=== PATIENT | female | born 1940 | race Hispanic/Latino ===

== ENCOUNTER 2018-04-20 02:55 | Emergency (ER) | payer MEDICARE, MEDICAID ==
[2018-04-20 02:55] VITALS: BMI 19.7
[2018-04-20 03:13] VITALS: BP 147/80; PULSE 92; RESP 18; TEMP 98; O2SAT 98
--- NOTE | 2018-04-20 04:05 | C.PDOC ---
History Of Present Illness 77 year old female presents to the ER after workers at [email or web address] called EMS to pick her up. Patient is homeless and is requesting a place to spend the night, otherwise patient denies any complaints. Time Seen by Provider: 04/20/18 03:05 Chief Complaint (Nursing): Medical Clearance History Per: Patient History/Exam Limitations: no limitations Onset/Duration Of Symptoms: Hrs Recent travel outside of the [place]: No Past Medical History Reviewed: Historical Data, Nursing Documentation, Vital Signs Vital Signs: Last Vital Signs Temp 98 F 04/20/18 03:07 Pulse 92 H 04/20/18 03:07 Resp 18 04/20/18 03:07 BP 147/80 04/20/18 03:07 Pulse Ox 98 04/20/18 03:07 - Medical History PMH: Arthritis, Back Problems, Fractures (L leg L ankle, L foot), Gastritis, Gastrointestinal Ulcer, HTN, Hypercholesterolemia, Hypothyroidism, Migraine, Peripheral Edema (chronic edema and redness), Pneumonia, Pneumothorax, Chronic Kidney Disease Denies: Anxiety (denied), Bipolar Disorder (denied), Diabetes, Deep Vein Thrombosis, Hepatitis, HIV, Seizures, Sexually Transmitted Disease Surgical History: Appendectomy, Cholecystectomy, Tonsillectomy Denies: Pacemaker - [facility] Procedures DEBRIDEMENT OF NAIL, NAIL BED OR NAIL FOLD (06/03/13) EXCISION OF TOE NAIL, EXTERNAL APPROACH (01/17/18) HOME MANAGEMENT TREATMENT (01/17/18) INDIVID PSYCHOTHERAP NEC (06/03/13) INJECT/INFUSE NEC (12/06/14) OTHER GROUP THERAPY (06/03/13) Family History: States: Unknown Family Hx - Social History Hx Tobacco Use: No Hx Alcohol Use: No Hx Substance Use: No - Immunization History Hx Tetanus Toxoid Vaccination: Yes Hx Influenza Vaccination: Yes Hx Pneumococcal Vaccination: Yes Review Of Systems Constitutional: Negative for: Fever, Chills Cardiovascular: Negative for: Chest Pain, Palpitations Respiratory: Negative for: Cough, Shortness of Breath Gastrointestinal: Negative for: Nausea, Vomiting Genitourinary: Negative for: Dysuria, Hematuria Musculoskeletal: Negative for: Neck Pain, Back Pain Skin: Negative for: Rash Neurological: Negative for: Weakness, Numbness Physical Exam - Physical Exam Appears: Non-toxic, No Acute Distress Skin: Normal Color, Warm, Dry Head: Atraumatic, Normacephalic Eye(s): bilateral: Normal Inspection Oral Mucosa: Moist Neck: Normal, Supple Chest: Symmetrical, No Tenderness Cardiovascular: Rhythm Regular Respiratory: Normal Breath Sounds, No Rales, No Rhonchi, No Wheezing Gastrointestinal/Abdominal: Soft, No Tenderness Back: No CVA Tenderness Extremity: Normal ROM (x4) Neurological/Psych: Oriented x3, Normal Speech Gait: Steady ED Course And Treatment O2 Sat by Pulse Oximetry: 98 (Room air) Pulse Ox Interpretation: Normal Disposition - Disposition Forms: [facility] (Romansh) - Scribe Statement The provider has reviewed the documentation as recorded by the Scribe Riccardo Farah All medical record entries made by the Scribe were at my direction and personally dictated by me. I have reviewed the chart and agree that the record accurately reflects my personal performance of the history, physical exam, medical decision making, and the department course for this patient. I have also personally directed, reviewed, and agree with the discharge instructions and disposition.
[2018-04-20] MEDS ORDERED: Sodium Chloride 0.9% Inh Soln (3mL) UD INH ONE (04:14)
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
== END 2018-04-20 06:50 | disposition home or self-care (01) ==
LOC: C.ER 02:55
DX: T59.811A Toxic effect of smoke, accidental (unintentional), initial encounter (principal); J70.5 Respiratory conditions due to smoke inhalation; Y92.099 Unspecified place in other non-institutional residence as the place of occurrence of the external cause

== ENCOUNTER 2018-09-08 22:35 | Emergency (ER) | payer MEDICARE, MEDICAID | END 2018-09-09 08:51 | disposition home or self-care (01) | LOC: C.ER 22:35 ==

== ENCOUNTER 2018-09-24 23:29 | Inpatient (IN) | payer MEDICARE, MEDICAID ==
[2018-09-24 23:33] VITALS: BMI 17.2
--- NOTE | 2018-09-24 23:55 | C.PDOC ---
History Of Present Illness 78 y/o female pt with hx of arthritis, HTN, HLD, migraines, pneumonia and CAD presents to the ER c/o syncopal episode today. Pt was at [facility] picking up her medication for her sinusitis when she felt herself going down. Pt was not sure if she hit her head, but denies neck pain, head pain, chest pain and hip pain. Pt also denies fever, chills, SOB, nausea, dizziness and vomiting. Pt was recently seen at [place] for sinusitis and pneumonia. Pt currently does not use any blood thinners. Time Seen by Provider: 09/24/18 23:55 Chief Complaint (Nursing): Syncope History Per: Patient History/Exam Limitations: no limitations Onset/Duration Of Symptoms: Hrs Current Symptoms Are (Timing): Still Present Activity At Onset Of Symptoms: Standing Past Medical History Reviewed: Historical Data, Nursing Documentation, Vital Signs Vital Signs: Last Vital Signs Temp 97.7 F 09/24/18 23:36 Pulse 94 H 09/24/18 23:36 Resp 16 09/24/18 23:36 BP 131/79 09/24/18 23:36 Pulse Ox 99 09/24/18 23:36 - Medical History PMH: Arthritis, Back Problems, Fractures (L leg L ankle, L foot), Gastritis, Gastrointestinal Ulcer, HTN, Hypercholesterolemia, Hypothyroidism, Migraine, Peripheral Edema (chronic edema and redness), Pneumonia, Pneumothorax, Chronic Kidney Disease Surgical History: Appendectomy, Cholecystectomy, Tonsillectomy - [facility] Procedures DEBRIDEMENT OF NAIL, NAIL BED OR NAIL FOLD (06/03/13) EXCISION OF TOE NAIL, EXTERNAL APPROACH (01/17/18) HOME MANAGEMENT TREATMENT (01/17/18) INDIVID PSYCHOTHERAP NEC (06/03/13) INJECT/INFUSE NEC (12/06/14) OTHER GROUP THERAPY (06/03/13) Family History: States: Unknown Family Hx - Social History Hx Tobacco Use: No Hx Alcohol Use: No Hx Substance Use: No - Immunization History Hx Tetanus Toxoid Vaccination: Yes Hx Influenza Vaccination: Yes Hx Pneumococcal Vaccination: Yes Review Of Systems Constitutional: Negative for: Fever, Chills Cardiovascular: Negative for: Chest Pain Respiratory: Negative for: Shortness of Breath Gastrointestinal: Negative for: Nausea, Vomiting Musculoskeletal: Negative for: Neck Pain, Other (hip pain) Neurological: Positive for: Other (syncopal episode ). Negative for: Weakness, Numbness, Headache, Dizziness Physical Exam - Physical Exam Appears: Non-toxic, No Acute Distress Skin: Normal Color, Warm, Dry Head: Atraumatic, Normacephalic Eye(s): bilateral: Normal Inspection, PERRL, EOMI Ear(s): Bilateral: Normal Nose: Normal Oral Mucosa: Moist Neck: Trachea Midline, Supple, Other (no meningeal signs and negative kernig's and brudzinski's) Chest: Symmetrical Cardiovascular: Rhythm Regular, No Friction Rub Respiratory: No Rales, No Rhonchi, No Wheezing Gastrointestinal/Abdominal: Normal Exam, Soft, No Tenderness Back: No CVA Tenderness Extremity: Bilateral: Atraumatic, Normal Color And Temperature, Normal ROM Pulses: Left Dorsalis Pedis: Normal (2+), Right Dorsalis Pedis: Normal (2+) Neurological/Psych: Oriented x3, Normal Speech, Normal Cognition, Normal Cranial Nerves, Normal Motor, Normal Sensation ED Course And Treatment - Laboratory Results Result Diagrams: 09/25/18 01:02 09/25/18 01:02 O2 Sat by Pulse Oximetry: 99 (RA) Pulse Ox Interpretation: Normal Medical Decision Making Medical Decision Making: Differential: syncope: cardiac v.s. neurocardiogenic syncope plans: -- chem labs -- blood work -- CXR -- CT Head EK, nsr, no stemi, pvcs labs, imaging largely unremarkable ct on my read unremarkable CXR on my read unremarkable no notable sinus tenderness on my exam Paged Dr. Quinteros for admission to his service for syncope pt in [facility] [address] Quinteros [phone] quinteros pt in [facility] [address] Quinteros [phone] appreciate consult w/ Dr. Gracia: to admit to his service pt in [facility], agreeable to plan. Disposition - Disposition Disposition Time: 02:17 Condition: STABLE Forms: [facility] (Swedish) - Clinical Impression Clinical Impression: Syncope - Scribe Statement The provider has reviewed the documentation as recorded by the Scribe Nelson Do Provider Attestation: All medical record entries made by the Scribe were at my direction and personally dictated by me. I have reviewed the chart and agree that the record accurately reflects my personal performance of the history, physical exam, medical decision making, and the department course for this patient. I have also personally directed, reviewed, and agree with the discharge instructions and disposition.
[2018-09-25 01:07] LABS: BASO # 0.1 K/uL (0.0-0.2); BASO % 1.1 % (0.0-2.0); EOS # 0.5 K/uL (0.0-0.7); EOS % 6.8 % (0.0-4.0); HEMOGLOBIN 11.9 g/dL (11.0-16.0); LYMPH # 1.3 K/uL (1.0-4.3); LYMPH % 18.9 % (20.0-40.0); MEAN CELL VOLUME 88.3 fL (81.0-99.0); MEAN CORPUSCULAR HEMOGLOBIN 28.6 pg (27.0-31.0); MEAN CORPUSCULAR HGB CONC 32.5 g/dL (33.0-37.0); MEAN PLATELET VOLUME 8.9 fL (7.2-11.7); MONO # 0.9 K/uL (0.0-0.8); MONO % 12.4 % (0.0-10.0); NEUT # 4.2 K/uL (1.8-7.0); NEUT % 60.8 % (50.0-75.0); RBC 4.14 Mil/uL (3.80-5.20); RED CELL DISTRIBUTION WIDTH 14.6 % (11.5-14.5); WHITE BLOOD COUNT 6.9 K/uL (4.8-10.8)
[2018-09-25 01:24] LABS: ALB/GLOB RATIO 1.7 (1.0-2.1); ALT/SGPT 33 U/L (9-52); AST/SGOT 33 U/L (14-36); BLOOD UREA NITROGEN 26 mg/dL (7-17); GFR NON-AFRICAN AMERICAN > 60
[2018-09-25 06:07] LABS: HDL CHOLESTEROL 70 mg/dL (30-70)
[2018-09-25 06:20] LABS: LDL CHOLESTEROL 97 mg/dL (0-129)
[2018-09-25 06:21] LABS: CK-MB 1.18 ng/mL (0.0-3.38)
--- NOTE | 2018-09-25 08:14 | CT ---
Date of service: 09/25/2018 PROCEDURE: CT HEAD WITHOUT CONTRAST. HISTORY: syncope COMPARISON: Comparison is made to the previous study dated 09/09/2018 TECHNIQUE: Axial computed tomography images were obtained through the head/brain without intravenous contrast. Radiation dose: Total exam DLP = 816.4 mGy-cm. This CT exam was performed using one or more of the following dose reduction techniques: Automated exposure control, adjustment of the mA and/or kV according to patient size, and/or use of iterative reconstruction technique. FINDINGS: HEMORRHAGE: No intracranial hemorrhage. BRAIN: No mass effect or edema. There is mild volume loss noted. There are foci of hypodensity in the periventricular and subcortical white matter likely represent chronic microvascular ischemic changes. VENTRICLES: Unremarkable. No hydrocephalus. CALVARIUM: Unremarkable. PARANASAL SINUSES: Unremarkable as visualized. No significant inflammatory changes. MASTOID AIR CELLS: Unremarkable as visualized. No inflammatory changes. OTHER FINDINGS: None. IMPRESSION: No evidence of acute intracranial hemorrhage intracranial collection mass effect or midline shift. Mild volume loss and [id number] white matter changes likely represent chronic microvascular ischemic disease. Preliminary report was submitted by [facility] Radiology contains concordant findings.
[2018-09-25] MEDS ORDERED: RANITIDINE HCL 300 MG PO SCH (10:00)
[2018-09-25] MEDS ORDERED: Potassium Chloride 20 mEq ER Tab PO ONE (10:15)
--- NOTE | 2018-09-25 10:35 | RAD ---
Date of service: 09/25/2018 HISTORY: fall COMPARISON: Comparison is made with 06/01/2013 TECHNIQUE: 1 view obtained. FINDINGS: LUNGS: No significant interval changes in the lungs are noted. Again noted are chronic lung changes and reticular opacities at the lung bases. PLEURA: No significant pleural effusion identified, no pneumothorax apparent. CARDIOVASCULAR: No aortic atherosclerotic calcification present. Normal cardiac size. No pulmonary vascular congestion. OSSEOUS STRUCTURES: No significant abnormalities. VISUALIZED UPPER ABDOMEN: Normal. OTHER FINDINGS: None. IMPRESSION: No radiographic evidence of acute pulmonary disease.
[2018-09-25] MEDS: Levothyroxine 125 MCG TAB PO SCH (11:37)
[2018-09-25] MEDS: Multiple Vitamins Tab PO SCH (11:37)
[2018-09-25] MEDS: Enoxaparin 40 mg Syringe SC SCH (11:38)
--- NOTE | 2018-09-25 15:48 | CP.PCM.CON ---
History of Present Illness - History of Present Illness History of Present Illness: Neurology Consultation Note: Consult requested by Dr. Gracia. Mrs. Singh is 78-year-old woman who was recently at [place] for pneumonia, has a past medical history of arthritis, HTN, HLD, migraines, CAD, who was at [facility], and noticed that she became light-headed and felt herself passing out. There was no report of urinary/bowel incontinence, tongue biting or abnormal movements. When she woke up, she was not confused and did not have any post- ictal phase. Review of Systems - Review of Systems All systems: reviewed and no additional remarkable complaints except Past Patient History - Infectious Disease Hx of Infectious Diseases: None - Past Social History Smoking Status: Never Smoked - CARDIAC Hx Hypercholesterolemia: Yes Hx Hypertension: Yes Hx Peripheral Edema: Yes (chronic edema and redness) - PULMONARY Hx Pneumonia: Yes - NEUROLOGICAL Hx Migraine: Yes - HEENT Hx HEENT Problems: No Hx Cataracts: No - RENAL Hx Chronic Kidney Disease: Yes - ENDOCRINE/METABOLIC Hx Hypothyroidism: Yes - HEMATOLOGICAL/ONCOLOGICAL Hx Human Immunodeficiency Virus (HIV): No - INTEGUMENTARY Hx Dermatological Problems: Yes Other/Comment: 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, skin 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 - MUSCULOSKELETAL/RHEUMATOLOGICAL Hx Arthritis: Yes Hx Fractures: Yes (L leg L ankle, L foot) - GASTROINTESTINAL Hx Gastritis: Yes - GENITOURINARY/GYNECOLOGICAL Hx Sexually Transmitted Disorders: No - PSYCHIATRIC Hx Substance Use: No - SURGICAL HISTORY Hx Appendectomy: Yes Hx Cholecystectomy: Yes Hx Tonsillectomy: Yes - ANESTHESIA Hx Anesthesia: Yes Hx Anesthesia Reactions: No Hx Malignant Hyperthermia: No Meds Allergies/Adverse Reactions: Allergies Allergy/AdvReac Type Severity Reaction Status Date / Time oxycodone HCl [From Percocet] Allergy urticaria Verified 04/20/18 03:05 to "IV percocet" Sulfa (Sulfonamide Allergy SHORTNESS Verified 04/20/18 03:05 Antibiotics) OF BREATH aspirin AdvReac pt has Verified 04/20/18 03:05 ulcer ciprofloxacin AdvReac DIZZINESS Verified 04/24/18 12:33 doxycycline AdvReac DIZZINESS Verified 04/24/18 12:33 ibuprofen [From Motrin IB] AdvReac VOMITING Verified 04/23/18 20:04 naproxen AdvReac pt has Verified 04/20/18 03:05 ulcer - Medications Medications: Current Medications Acetaminophen/Butalbital/Caffeine (Fioricet) 1 tab PO Q6 PRN PRN Reason: Pain, moderate (4-7), Headache Enoxaparin Sodium (Lovenox) 40 mg SC DAILY [facility] Last Admin: 09/25/18 11:38 Dose: 40 mg Famotidine (Pepcid) 20 mg PO BID [facility] Last Admin: 09/25/18 11:38 Dose: Not Given Levothyroxine Sodium (Synthroid) 125 mcg PO DAILY [facility] Last Admin: 09/25/18 11:37 Dose: 125 mcg Loratadine (Claritin) 10 mg PO DAILY [facility] Last Admin: 09/25/18 11:37 Dose: 10 mg Multivitamins (Hexavitamin) 1 tab PO DAILY [facility] Last Admin: 09/25/18 11:37 Dose: 1 tab Physical Exam - Constitutional Appears: Well - Head Exam Head Exam: ATRAUMATIC, NORMAL INSPECTION, NORMOCEPHALIC - Eye Exam Eye Exam: EOMI, Normal appearance, PERRL Pupil Exam: NORMAL ACCOMODATION, PERRL - ENT Exam ENT Exam: Mucous Membranes Moist, Normal Exam - Neck Exam Neck exam: Positive for: Normal Inspection - Respiratory Exam Respiratory Exam: Clear to Auscultation Bilateral, NORMAL BREATHING PATTERN - Cardiovascular Exam Cardiovascular Exam: REGULAR RHYTHM - GI/Abdominal Exam GI & Abdominal Exam: Normal Bowel Sounds, Soft. absent: Tenderness - Extremities Exam Extremities exam: Positive for: normal inspection - Back Exam Back exam: NORMAL INSPECTION - Neurological Exam Neurological exam: Alert, CN II-XII Intact, Normal Gait, Oriented x3, Reflexes Normal - Psychiatric Exam Psychiatric exam: Normal Affect, Normal Mood - Skin Skin Exam: Dry, Intact, Normal Color, Warm Results - Vital Signs Recent Vital Signs: Last Vital Signs Temp 97.4 F L 09/25/18 08:43 Pulse 82 09/25/18 08:43 Resp 20 09/25/18 08:43 BP 102/66 09/25/18 08:43 Pulse Ox 100 09/25/18 08:43 - Labs Result Diagrams: 09/25/18 01:02 09/25/18 01:02 Labs: Laboratory Results - last 24 hr 09/25/18 09/25/18 09/25/18 01:02 01:02 05:51 WBC 6.9 RBC 4.14 Hgb 11.9 Hct 36.6 MCV 88.3 MCH 28.6 MCHC 32.5 L RDW 14.6 H Plt Count 279 MPV 8.9 Neut % (Auto) 60.8 Lymph % (Auto) 18.9 L [place] % (Auto) 12.4 H Eos % (Auto) 6.8 H Baso % (Auto) 1.1 Neut # (Auto) 4.2 Lymph # (Auto) 1.3 [place] # (Auto) 0.9 H Eos # (Auto) 0.5 Baso # (Auto) 0.1 Sodium 137 Potassium 3.3 L Chloride 102 Carbon Dioxide 29 Anion Gap 10 BUN 26 H Creatinine 0.6 L Est GFR ( Amer) > 60 Est GFR (Non-Af Amer) > 60 Random Glucose 128 H D Calcium 9.0 Magnesium 1.9 1.9 Total Bilirubin 0.3 AST 33 ALT 33 Alkaline Phosphatase 146 H Total Creatine Kinase < 20 L CK-MB (Mass) 1.18 Troponin I < 0.0120 0.0120 Total Protein 6.4 Albumin 4.0 Globulin 2.3 Albumin/Globulin Ratio 1.7 Triglycerides 185 H Cholesterol 213 H LDL Cholesterol Direct 97 HDL Cholesterol 70 TSH 3rd Generation 0.25 L Assessment & Plan (1) Syncope Assessment and Plan: Likely due to vaso-vagal reasons. No focal neurological deficits. CT head is normal. Does not appear to have been a seizure. No further recommendations. Thank you. Status: Acute
--- NOTE | 2018-09-25 18:29 | CP.PCM.CON ---
History of Present Illness - History of Present Illness History of Present Illness: 78 year old with hx of HTN, ? Bipolar from er records, had multiple evaluation for multipe near syncope under stress, the latest was at [place] 04/15, [place] neuro eval, no arrythmia on telemetry, echo NL LV contractility, ? they could not evaluate . now admitted with the same, no apparent seizures, had CT, seen by neuro, stable vitals, no postural hypotenssion, no arrhythmia. no complete Loss of conciseness, no trauma. will repeat echo. Clinically no significant aortic stenosis, she is very upset about the way she was treated at [facility] Review of Systems - Review of Systems Systems not reviewed;Unavailable: Acuity of Condition - Constitutional Constitutional: Anorexia, Weakness - EENT Eyes: absent: Discharge Ears: absent: Ear Discharge Nose/Mouth/Throat: absent: Epistaxis - Cardiovascular Cardiovascular: Lightheadedness. absent: Acrocyanosis, Chest Pain, Dyspnea on Exertion, Syncope - Respiratory Respiratory: absent: Dyspnea, Hemoptysis, Dyspnea on Exertion - Gastrointestinal Gastrointestinal: absent: Abdominal Pain, Diarrhea, Hematemesis, Vomiting - Genitourinary Genitourinary: absent: Change in Urinary Stream - Reproductive: Female Reproductive:Female: Menopausal Past Patient History - Infectious Disease Hx of Infectious Diseases: None - Past Social History Smoking Status: Never Smoked - CARDIAC Hx Hypercholesterolemia: Yes Hx Hypertension: Yes - PULMONARY Hx Pneumonia: Yes - NEUROLOGICAL Hx Migraine: Yes - HEENT Hx HEENT Problems: No Hx Cataracts: No - RENAL Hx Chronic Kidney Disease: Yes - ENDOCRINE/METABOLIC Hx Hypothyroidism: Yes - HEMATOLOGICAL/ONCOLOGICAL Hx Human Immunodeficiency Virus (HIV): No - INTEGUMENTARY Hx Dermatological Problems: Yes Other/Comment: 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, skin 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 - MUSCULOSKELETAL/RHEUMATOLOGICAL Hx Arthritis: Yes - GASTROINTESTINAL Hx Gastritis: Yes - GENITOURINARY/GYNECOLOGICAL Hx Sexually Transmitted Disorders: No - PSYCHIATRIC Hx Substance Use: No - SURGICAL HISTORY Hx Appendectomy: Yes Hx Cholecystectomy: Yes Hx Tonsillectomy: Yes - ANESTHESIA Hx Anesthesia: Yes Hx Anesthesia Reactions: No Hx Malignant Hyperthermia: No Meds Allergies/Adverse Reactions: Allergies Allergy/AdvReac Type Severity Reaction Status Date / Time oxycodone HCl [From Percocet] Allergy urticaria Verified 04/20/18 03:05 to "IV percocet" Sulfa (Sulfonamide Allergy SHORTNESS Verified 04/20/18 03:05 Antibiotics) OF BREATH aspirin AdvReac pt has Verified 04/20/18 03:05 ulcer ciprofloxacin AdvReac DIZZINESS Verified 04/24/18 12:33 doxycycline AdvReac DIZZINESS Verified 04/24/18 12:33 ibuprofen [From Motrin IB] AdvReac VOMITING Verified 04/23/18 20:04 naproxen AdvReac pt has Verified 04/20/18 03:05 ulcer - Medications Medications: Current Medications Acetaminophen/Butalbital/Caffeine (Fioricet) 1 tab PO Q6 PRN PRN Reason: Pain, moderate (4-7), Headache Enoxaparin Sodium (Lovenox) 40 mg SC DAILY [facility] Last Admin: 09/25/18 11:38 Dose: 40 mg Famotidine (Pepcid) 20 mg PO BID [facility] Last Admin: 09/25/18 11:38 Dose: Not Given Levothyroxine Sodium (Synthroid) 125 mcg PO DAILY [facility] Last Admin: 09/25/18 11:37 Dose: 125 mcg Loratadine (Claritin) 10 mg PO DAILY [facility] Last Admin: 09/25/18 11:37 Dose: 10 mg Multivitamins (Hexavitamin) 1 tab PO DAILY [facility] Last Admin: 09/25/18 11:37 Dose: 1 tab Physical Exam - Constitutional Appears: Non-toxic - Head Exam Head Exam: ATRAUMATIC - Eye Exam Eye Exam: EOMI - ENT Exam ENT Exam: Mucous Membranes Moist - Neck Exam Neck exam: Positive for: Normal Inspection. Negative for: Lymphadenopathy - Respiratory Exam Respiratory Exam: absent: Rales, Rhonchi - Cardiovascular Exam Cardiovascular Exam: REGULAR RHYTHM, Systolic Murmur Additional comments: Soft 1/6 to 2/6 ejection murmur - GI/Abdominal Exam GI & Abdominal Exam: Normal Bowel Sounds. absent: Organomegaly - Rectal Exam Rectal Exam: Deferred - Extremities Exam Extremities exam: Positive for: normal capillary refill. Negative for: calf tenderness - Neurological Exam Neurological exam: Alert, Oriented x3 - Psychiatric Exam Psychiatric exam: Anxious - Skin Skin Exam: Dry Results - Vital Signs Recent Vital Signs: Last Vital Signs Temp 97.5 F L 09/25/18 16:43 Pulse 94 H 09/25/18 16:43 Resp 20 09/25/18 16:43 BP 110/58 L 09/25/18 16:43 Pulse Ox 96 09/25/18 16:43 - Labs Result Diagrams: 09/26/18 08:52 09/26/18 08:52 Labs: Laboratory Results - last 24 hr 09/25/18 09/25/18 09/25/18 01:02 01:02 05:51 WBC 6.9 RBC 4.14 Hgb 11.9 Hct 36.6 MCV 88.3 MCH 28.6 MCHC 32.5 L RDW 14.6 H Plt Count 279 MPV 8.9 Neut % (Auto) 60.8 Lymph % (Auto) 18.9 L Hodgeman % (Auto) 12.4 H Eos % (Auto) 6.8 H Baso % (Auto) 1.1 Neut # (Auto) 4.2 Lymph # (Auto) 1.3 Hodgeman # (Auto) 0.9 H Eos # (Auto) 0.5 Baso # (Auto) 0.1 Sodium 137 Potassium 3.3 L Chloride 102 Carbon Dioxide 29 Anion Gap 10 BUN 26 H Creatinine 0.6 L Est GFR ( Amer) > 60 Est GFR (Non-Af Amer) > 60 Random Glucose 128 H D Calcium 9.0 Magnesium 1.9 1.9 Total Bilirubin 0.3 AST 33 ALT 33 Alkaline Phosphatase 146 H Total Creatine Kinase < 20 L CK-MB (Mass) 1.18 Troponin I < 0.0120 0.0120 Total Protein 6.4 Albumin 4.0 Globulin 2.3 Albumin/Globulin Ratio 1.7 Triglycerides 185 H Cholesterol 213 H LDL Cholesterol Direct 97 HDL Cholesterol 70 TSH 3rd Generation 0.25 L Assessment & Plan (1) Syncope Status: Acute Comment: unlikely significant, no seizures, no [place], no arrhythmia, unlikely significant aortic stenosis
[2018-09-25] MEDS: Apap-Butalbital-Caffeine 325-50-40mg Tab PO PRN (21:24)
[2018-09-26] MEDS: Apap-Butalbital-Caffeine 325-50-40mg Tab PO PRN ×3 (05:57→19:15)
[2018-09-26 09:02] LABS: BASO # 0.1 K/uL (0.0-0.2); BASO % 1.6 % (0.0-2.0); EOS # 0.3 K/uL (0.0-0.7); EOS % 6.7 % (0.0-4.0); HEMOGLOBIN 10.6 g/dL (11.0-16.0); LYMPH # 0.9 K/uL (1.0-4.3); LYMPH % 17.9 % (20.0-40.0); MEAN CELL VOLUME 88.6 fL (81.0-99.0); MEAN CORPUSCULAR HEMOGLOBIN 28.9 pg (27.0-31.0); MEAN CORPUSCULAR HGB CONC 32.6 g/dL (33.0-37.0); MONO # 0.7 K/uL (0.0-0.8); NEUT # 3.1 K/uL (1.8-7.0); NEUT % 60.8 % (50.0-75.0); RBC 3.68 Mil/uL (3.80-5.20); RED CELL DISTRIBUTION WIDTH 14.7 % (11.5-14.5); WHITE BLOOD COUNT 5.1 K/uL (4.8-10.8)
[2018-09-26 09:34] LABS: ALB/GLOB RATIO 1.4 (1.0-2.1); ALBUMIN 3.2 g/dL (3.5-5.0); ALT/SGPT 31 U/L (9-52); AST/SGOT 27 U/L (14-36); BLOOD UREA NITROGEN 16 mg/dL (7-17); CALCIUM 8.6 mg/dl (8.6-10.4); GFR NON-AFRICAN AMERICAN > 60
--- NOTE | 2018-09-26 11:26 | CP.PCM.PN ---
Subjective - Date & Time of Evaluation Date of Evaluation: 09/26/18 Time of Evaluation: 13:00 - Subjective Subjective: no CA, stable vitals, 1.3 g dropp of Hgb, f/u with echo comfortable in bed no acute distress Objective - Vital Signs/Intake and Output Vital Signs (last 24 hours): Temp Pulse Resp BP Pulse Ox 97.6 F 87 20 111/69 96 09/26/18 07:00 09/26/18 07:00 09/26/18 07:00 09/26/18 07:00 09/26/18 07:00 - Medications Medications: Current Medications Acetaminophen/Butalbital/Caffeine (Fioricet) 1 tab PO Q6 PRN PRN Reason: Pain, moderate (4-7), Headache Last Admin: 09/26/18 05:57 Dose: 1 tab Enoxaparin Sodium (Lovenox) 40 mg SC DAILY [facility] Last Admin: 09/25/18 11:38 Dose: 40 mg Famotidine (Pepcid) 20 mg PO BID [facility] Last Admin: 09/25/18 18:00 Dose: 20 mg Levothyroxine Sodium (Synthroid) 125 mcg PO DAILY [facility] Last Admin: 09/25/18 11:37 Dose: 125 mcg Loratadine (Claritin) 10 mg PO DAILY [facility] Last Admin: 09/25/18 11:37 Dose: 10 mg Multivitamins (Hexavitamin) 1 tab PO DAILY [facility] Last Admin: 09/25/18 11:37 Dose: 1 tab - Labs Labs: 09/26/18 08:52 09/26/18 08:52 - Constitutional Appears: Non-toxic - Head Exam Head Exam: ATRAUMATIC - Eye Exam Eye Exam: EOMI - ENT Exam ENT Exam: Mucous Membranes Moist - Neck Exam Neck Exam: absent: Lymphadenopathy, Thyromegaly - Respiratory Exam Respiratory Exam: absent: Rales, Rhonchi, Wheezes - Cardiovascular Exam Cardiovascular Exam: REGULAR RHYTHM, Murmur - GI/Abdominal Exam GI & Abdominal Exam: Soft, Normal Bowel Sounds. absent: Organomegaly - Rectal Exam Rectal Exam: Deferred - Extremities Exam Extremities Exam: Normal Capillary Refill. absent: Calf Tenderness - Neurological Exam Neurological Exam: Alert - Psychiatric Exam Psychiatric exam: Normal Affect - Skin Skin Exam: Dry Assessment and Plan (1) Syncope Assessment & Plan: No posterior changes no significant cardiac reason for near syncope follow-up with echo Status: Acute
[2018-09-26] MEDS: Multiple Vitamins Tab PO SCH (11:42)
[2018-09-26] MEDS: Levothyroxine 125 MCG TAB PO SCH (11:42)
[2018-09-26] MEDS: Enoxaparin 40 mg Syringe SC SCH (11:42)
[2018-09-26] MEDS ORDERED: Lidocaine 5% Patch TD ONE (21:47)
--- NOTE | 2018-09-26 23:08 | CP.PCM.HP ---
Present on Admission - Present on Admission Any Indicators Present on Admission: No Past Patient History - Infectious Disease Hx of Infectious Diseases: None - Past Social History Smoking Status: Never Smoked - CARDIAC Hx Hypercholesterolemia: Yes Hx Hypertension: Yes - PULMONARY Hx Pneumonia: Yes - NEUROLOGICAL Hx Migraine: Yes - HEENT Hx HEENT Problems: No Hx Cataracts: No - RENAL Hx Chronic Kidney Disease: Yes - ENDOCRINE/METABOLIC Hx Hypothyroidism: Yes - HEMATOLOGICAL/ONCOLOGICAL Hx Human Immunodeficiency Virus (HIV): No - INTEGUMENTARY Hx Dermatological Problems: Yes Other/Comment: 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, skin 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 - MUSCULOSKELETAL/RHEUMATOLOGICAL Hx Arthritis: Yes - GASTROINTESTINAL Hx Gastritis: Yes - GENITOURINARY/GYNECOLOGICAL Hx Sexually Transmitted Disorders: No - PSYCHIATRIC Hx Substance Use: No - SURGICAL HISTORY Hx Appendectomy: Yes Hx Cholecystectomy: Yes Hx Tonsillectomy: Yes - ANESTHESIA Hx Anesthesia: Yes Hx Anesthesia Reactions: No Hx Malignant Hyperthermia: No Meds Allergies/Adverse Reactions: Allergies Allergy/AdvReac Type Severity Reaction Status Date / Time oxycodone HCl [From Percocet] Allergy urticaria Verified 04/20/18 03:05 to "IV percocet" Sulfa (Sulfonamide Allergy SHORTNESS Verified 04/20/18 03:05 Antibiotics) OF BREATH aspirin AdvReac pt has Verified 04/20/18 03:05 ulcer ciprofloxacin AdvReac DIZZINESS Verified 04/24/18 12:33 doxycycline AdvReac DIZZINESS Verified 04/24/18 12:33 ibuprofen [From Motrin IB] AdvReac VOMITING Verified 04/23/18 20:04 naproxen AdvReac pt has Verified 04/20/18 03:05 ulcer Results - Vital Signs Recent Vital Signs: Last Vital Signs Temp 97.1 F L 09/26/18 19:35 Pulse 87 09/26/18 16:00 Resp 18 09/26/18 16:00 BP 123/72 09/26/18 16:00 Pulse Ox 97 09/26/18 16:00 - Labs Result Diagrams: 09/26/18 08:52 09/26/18 08:52 Labs: Laboratory Results - last 24 hr 09/26/18 09/26/18 08:52 08:52 WBC 5.1 RBC 3.68 L Hgb 10.6 L Hct 32.6 L MCV 88.6 MCH 28.9 MCHC 32.6 L RDW 14.7 H Plt Count 271 MPV 9.0 Neut % (Auto) 60.8 Lymph % (Auto) 17.9 L Ulster % (Auto) 13.0 H Eos % (Auto) 6.7 H Baso % (Auto) 1.6 Neut # (Auto) 3.1 Lymph # (Auto) 0.9 L Ulster # (Auto) 0.7 Eos # (Auto) 0.3 Baso # (Auto) 0.1 Sodium 138 Potassium 4.4 Chloride 104 Carbon Dioxide 28 Anion Gap 10 BUN 16 Creatinine 0.6 L Est GFR ( Amer) > 60 Est GFR (Non-Af Amer) > 60 Random Glucose 90 D Calcium 8.6 Total Bilirubin 0.2 AST 27 ALT 31 Alkaline Phosphatase 112 Total Protein 5.6 L Albumin 3.2 L Globulin 2.3 Albumin/Globulin Ratio 1.4
[2018-09-27] MEDS: Apap-Butalbital-Caffeine 325-50-40mg Tab PO PRN (02:11)
[2018-09-27] MEDS: Levothyroxine 125 MCG TAB PO SCH (05:50)
--- NOTE | 2018-09-27 06:36 | HP ---
CHIEF COMPLAINT: Syncope and dizziness. HISTORY OF PRESENT ILLNESS: This is a 78-year-old white female with history of osteoarthritis, hypertension, hyperlipidemia, chronic headaches, pneumonia. The patient was treated at [facility] for coronary artery disease. The patient was in a pharmacy and while she was taking her medicine for her sinus, she started feeling dizzy and she felt like she is about to fall. The patient is not sure about any head hit. She denies any history of neck pain. She is complaining of headache on the top of her head. She had chest pain before, but she denies any chest pain at the moment. She has joint pain and hip pain. She denies any history of cough, sore throat, runny nose. She denies any history of dyspepsia. She denies any history of nausea or vomiting. There is no history of trauma, fall, loss of consciousness. There is no history of seizure-like activity. She denies any tingling, numbness, or paraesthesia. Today, the patient was walking in her room, and she hit her right ankle and she is complaining of pain in the right ankle. At the moment, she denies any runny nose, sneezing, itchy eyes, or itchy nose. There is no history of abdominal pain, nausea, vomiting, or diarrhea. PAST MEDICAL HISTORY: Arthritis. The patient has deformity of hands. She is weird but she does not know if she has rheumatoid arthritis. Hypertension, hyperlipidemia, hypothyroidism, pneumonia. PAST SURGICAL HISTORY: Tonsillectomy, cholecystectomy, appendectomy. SOCIAL HISTORY: She is a nonsmoker, non-EtOH user. CURRENT MEDICATION: At home, she is on clonidine, Synthroid, Zantac, Pen-VK, omeprazole, Movantik, Dailyvit, Claritin, Zestril, . PHYSICAL EXAMINATION: GENERAL: An elderly female who is combative, agitated, and restless. She is at the moment not in any distress. She is complaining of pain in the right ankle. VITAL SIGNS: Blood pressure 123/72, pulse 58, respiratory rate 18, temperature 97.9. SKIN: Senile turgor. No bruises. No purpura. No petechiae. HEENT: Atraumatic and normocephalic. Positive pallor. Negative jaundice. Extraocular movements are intact. NECK: Supple. No JVD. No lymph node. No thyromegaly. CHEST WALL: Bilateral symmetrical expansion. LUNGS: Clear. No rales. No rhonchi. CARDIOVASCULAR SYSTEM: PMI not localized. S1 and S2 regular. No heave. No thrill. ABDOMEN: Soft, nontender. Bowel sounds are positive. RECTAL: Refused. PELVIS: Refused. 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 The patient has tenderness on the right lateral malleolus. CENTRAL NERVOUS SYSTEM: Awake, alert, and oriented x3. Cranial nerves II through XII are normal. No involuntary movement. Power 5/5 x4. Plantars are downgoing. ASSESSMENT: 1. Dizziness, near syncope with a new fall today in the hospital, rule out cardiac arrhythmia, rule out seizure, rule out vasovagal syncope. 2. Poorly controlled hypertension. 3. Hyperlipidemia. 4. Arthritis, rule out rheumatoid arthritis. PLAN: Admit. Detailed orders are written. X-ray of right ankle pending to rule out fracture. If it is positive, we can consult Orthopedics. In the meantime, we will observe the patient on telemetry. Drake Gracia MD
[2018-09-27 07:54] LABS: BASO # 0.1 K/uL (0.0-0.2); BASO % 1.5 % (0.0-2.0); EOS # 0.4 K/uL (0.0-0.7); EOS % 6.9 % (0.0-4.0); HEMOGLOBIN 10.5 g/dL (11.0-16.0); MEAN CELL VOLUME 88.1 fL (81.0-99.0); MEAN CORPUSCULAR HEMOGLOBIN 29.1 pg (27.0-31.0); MEAN CORPUSCULAR HGB CONC 33.1 g/dL (33.0-37.0); MEAN PLATELET VOLUME 8.8 fL (7.2-11.7); MONO # 0.9 K/uL (0.0-0.8); MONO % 14.1 % (0.0-10.0); NEUT # 3.8 K/uL (1.8-7.0); NEUT % 61.5 % (50.0-75.0); RBC 3.62 Mil/uL (3.80-5.20); RED CELL DISTRIBUTION WIDTH 14.5 % (11.5-14.5); WHITE BLOOD COUNT 6.2 K/uL (4.8-10.8)
[2018-09-27 08:09] LABS: ALB/GLOB RATIO 1.4 (1.0-2.1); ALBUMIN 3.2 g/dL (3.5-5.0); ALT/SGPT 28 U/L (9-52); AST/SGOT 25 U/L (14-36); BLOOD UREA NITROGEN 16 mg/dL (7-17); CALCIUM 8.8 mg/dl (8.6-10.4); GFR NON-AFRICAN AMERICAN > 60; LIPASE 48 U/L (23-300)
--- NOTE | 2018-09-27 09:34 | RAD ---
Bilateral ankles four views HISTORY: Ankle pain. COMPARISON: None available. FINDINGS: Right ankle: Diffuse osteopenia. Narrowing of the tibiotalar joint space. No evidence of acute displaced fracture or dislocation. Vascular calcifications. Ankle mortise maintained. Talar dome intact. Degenerative changes noted at the dorsal aspect of the midfoot with osteophytosis most prominent at the talonavicular joint space. Left ankle: No evidence of acute displaced fracture or dislocation. Diffuse osteopenia. Ankle mortise maintained. Talar dome intact. Vascular calcifications. Degenerative changes in the midfoot dorsally with osteophytosis most prominent at the talonavicular joint space. Impression: Degenerative changes. If pain persists, consider correlation with MRI.
[2018-09-27] MEDS: Lidocaine 5% Patch TD SCH (11:54)
[2018-09-27] MEDS: Multiple Vitamins Tab PO SCH (11:54)
[2018-09-27] MEDS: Enoxaparin 40 mg Syringe SC SCH (11:55)
--- NOTE | 2018-09-27 12:11 | CP.PCM.PN ---
Subjective - Date & Time of Evaluation Date of Evaluation: 09/27/18 Time of Evaluation: 12:00 - Subjective Subjective: No acute distress, hemodynamically stable, no further near syncope. Anxious with prior issues at [facility], echocardiogram with normal left ventricular contractility no aortic stenosis. No cardiac etiology for a near syncope is identified stable from the cardiac viewpoint Objective - Vital Signs/Intake and Output Vital Signs (last 24 hours): Temp Pulse Resp BP Pulse Ox 98 F 68 20 93/60 L 96 09/27/18 01:00 09/27/18 08:22 09/27/18 00:00 09/27/18 00:00 09/27/18 08:24 Intake and Output: 09/27/18 09/27/18 06:59 18:59 Intake Total 300 Balance 300 - Medications Medications: Current Medications Acetaminophen/Butalbital/Caffeine (Fioricet) 1 tab PO Q6 PRN PRN Reason: Pain, moderate (4-7), Headache Last Admin: 09/27/18 02:11 Dose: 1 tab Enoxaparin Sodium (Lovenox) 40 mg SC DAILY [facility] Last Admin: 09/27/18 11:55 Dose: 40 mg Famotidine (Pepcid) 20 mg PO BID [facility] Last Admin: 09/27/18 11:55 Dose: 20 mg Levothyroxine Sodium (Synthroid) 125 mcg PO 0630 [facility] Last Admin: 09/27/18 05:50 Dose: 125 mcg Lidocaine (Lidoderm) 1 ea TD DAILY [facility] Last Admin: 09/27/18 11:54 Dose: 1 ea Loratadine (Claritin) 10 mg PO DAILY [facility] Last Admin: 09/27/18 11:53 Dose: 10 mg Multivitamins (Hexavitamin) 1 tab PO DAILY [facility] Last Admin: 09/27/18 11:54 Dose: 1 tab - Labs Labs: 09/27/18 07:40 09/27/18 07:40 - Constitutional Appears: Non-toxic - Head Exam Head Exam: ATRAUMATIC - Eye Exam Eye Exam: EOMI - ENT Exam ENT Exam: Mucous Membranes Moist - Neck Exam Neck Exam: absent: Lymphadenopathy, Tenderness - Respiratory Exam Respiratory Exam: Clear to Ausculation Bilateral. absent: Chest Wall Tenderness, Rales - Cardiovascular Exam Cardiovascular Exam: REGULAR RHYTHM, Murmur - GI/Abdominal Exam GI & Abdominal Exam: Normal Bowel Sounds. absent: Organomegaly - Rectal Exam Rectal Exam: Deferred - Extremities Exam Extremities Exam: Normal Capillary Refill. absent: Calf Tenderness - Neurological Exam Neurological Exam: Alert, Oriented x3 - Psychiatric Exam Psychiatric exam: Normal Affect - Skin Skin Exam: Dry Assessment and Plan (1) Syncope Status: Acute
[2018-09-27] MEDS ORDERED: Lidocaine 5% Patch TD ONE (17:15)
--- NOTE | 2018-09-27 21:59 | CP.PCM.PN ---
Subjective - Date & Time of Evaluation Date of Evaluation: 09/27/18 Time of Evaluation: 07:40 - Subjective Subjective: dictated Objective - Vital Signs/Intake and Output Vital Signs (last 24 hours): Temp Pulse Resp BP Pulse Ox 97.7 F 104 H 20 105/62 96 09/27/18 15:00 09/27/18 16:22 09/27/18 15:00 09/27/18 15:00 09/27/18 15:00 Intake and Output: 09/27/18 09/28/18 18:59 06:59 Intake Total 800 Balance 800 - Medications Medications: Current Medications Acetaminophen/Butalbital/Caffeine (Fioricet) 1 tab PO Q6 PRN PRN Reason: Pain, moderate (4-7), Headache Last Admin: 09/27/18 02:11 Dose: 1 tab Enoxaparin Sodium (Lovenox) 40 mg SC DAILY [facility] Last Admin: 09/27/18 11:55 Dose: 40 mg Famotidine (Pepcid) 20 mg PO BID [facility] Last Admin: 09/27/18 17:26 Dose: 20 mg Levothyroxine Sodium (Synthroid) 125 mcg PO 0630 [facility] Last Admin: 09/27/18 05:50 Dose: 125 mcg Lidocaine (Lidoderm) 1 ea TD DAILY [facility] Last Admin: 09/27/18 11:54 Dose: 1 ea Loratadine (Claritin) 10 mg PO DAILY [facility] Last Admin: 09/27/18 11:53 Dose: 10 mg Multivitamins (Hexavitamin) 1 tab PO DAILY [facility] Last Admin: 09/27/18 11:54 Dose: 1 tab - Labs Labs: 09/27/18 07:40 09/27/18 07:40
--- NOTE | 2018-09-28 03:49 | PN ---
DATE: 09/27/2018 SUBJECTIVE: The patient is feeling better. She is still on and off dizzy. No chest pain. Seen by Cardiology. PHYSICAL EXAMINATION: VITAL SIGNS: Blood pressure 105/62, pulse 104, respiratory rate 20, temperature 97.7. LUNGS: Clear. No rales. No rhonchi. CARDIOVASCULAR SYSTEM: S1 and S2, regular. ABDOMEN: Soft, nontender. Bowel sounds are positive. ASSESSMENT: 1. Dizziness, near syncope. 2. Poorly controlled hypertension with low blood pressure and tachycardia. 3. Osteoarthritis with history of injury to right ankle. No fracture on the x-ray. PLAN: Physical therapy. Rehab. Nutrition. Monitor the patient. Drake Gracia MD
[2018-09-28] MEDS: Apap-Butalbital-Caffeine 325-50-40mg Tab PO PRN ×2 (04:06→16:12)
[2018-09-28] MEDS: Levothyroxine 125 MCG TAB PO SCH (05:34)
[2018-09-28 08:19] LABS: BASO # 0.1 K/uL (0.0-0.2); EOS # 0.4 K/uL (0.0-0.7); EOS % 5.2 % (0.0-4.0); LYMPH % 12.2 % (20.0-40.0); MEAN CELL VOLUME 88.4 fL (81.0-99.0); MEAN CORPUSCULAR HEMOGLOBIN 29.3 pg (27.0-31.0); MEAN CORPUSCULAR HGB CONC 33.2 g/dL (33.0-37.0); MEAN PLATELET VOLUME 8.8 fL (7.2-11.7); MONO # 0.9 K/uL (0.0-0.8); MONO % 10.9 % (0.0-10.0); NEUT % 70.7 % (50.0-75.0); NRBC % 0.1 % (0.0-2.0); RBC 4.11 Mil/uL (3.80-5.20); RED CELL DISTRIBUTION WIDTH 14.4 % (11.5-14.5); WHITE BLOOD COUNT 8.5 K/uL (4.8-10.8)
[2018-09-28 08:27] LABS: ALB/GLOB RATIO 1.7 (1.0-2.1); ALBUMIN 3.9 g/dL (3.5-5.0); ALT/SGPT 25 U/L (9-52); AST/SGOT 30 U/L (14-36); BLOOD UREA NITROGEN 18 mg/dL (7-17); CALCIUM 9.3 mg/dl (8.6-10.4); GFR NON-AFRICAN AMERICAN > 60
[2018-09-28] MEDS: Multiple Vitamins Tab PO SCH (10:57)
[2018-09-28] MEDS: Lidocaine 5% Patch TD SCH (10:57)
[2018-09-28] MEDS: Enoxaparin 40 mg Syringe SC SCH (10:57)
--- NOTE | 2018-09-28 11:05 | VASCLAB ---
Date of service: 09/27/2018 PROCEDURE: Carotid Duplex Exam. HISTORY: SYNCOPE COMPARISON: None available. TECHNIQUE: Grayscale and duplex Doppler evaluation of the cervical carotid and vertebral arteries were performed. The common carotid, carotid bifurcations and cervical Internal Carotid Artery (ICA) and proximal External Carotid Artery (ECA) were evaluated. The vertebral arteries were evaluated for gross patency and flow direction. Report prepared by VIVIANA Leonard FINDINGS: RIGHT CAROTID ARTERIES: 1. Common Carotid Artery: No significant focal plaque formation of the right common carotid artery. Maximum Peak Systolic velocity: 78 cm/sec: End-diastolic velocity 16 cm/sec. 2. Carotid Bifurcation: Heterogeneous plaque formation. Maximum Peak Systolic velocity: 38 cm/sec: End-diastolic velocity 8 cm/sec. 3. Internal Carotid Artery: Plaque description: 3.1. Proximal Segment: Peak systolic velocity 63 cm/sec: End-diastolic velocity 20 cm/sec - % stenosis 0-15% 3.2. Middle Segment: Peak systolic velocity 66 cm/sec: End-diastolic velocity 25 cm/sec - % stenosis 0-15% 3.3. Distal Segment: Peak systolic velocity 42 cm/sec: End-diastolic velocity 17 cm/sec - % stenosis 0-15% 4. External Carotid Artery: No significant focal plaque formation. Peak systolic velocity 43 cm/sec 5. ICA/CCA Ratio: 1.0 LEFT CAROTID ARTERIES: 1. Common Carotid Artery: No significant focal plaque formation of the left common carotid artery. Maximum Peak Systolic velocity: 59 cm/sec: End-diastolic velocity 14 cm/sec. 2. Carotid Bifurcation: Homogeneous plaque formation. Maximum Peak Systolic velocity: 41 cm/sec: End-diastolic velocity 12 cm/sec. 3. Internal Carotid Artery: Plaque description: Homogeneous 3.1. Proximal Segment: Peak systolic velocity 54 cm/sec: End-diastolic velocity 23 cm/sec - % stenosis 0-15% 3.2. Middle Segment: Peak systolic velocity 46 cm/sec: End-diastolic velocity 17 cm/sec - % stenosis 0-15% 3.3. Distal Segment: Peak systolic velocity 41 cm/sec: End-diastolic velocity 18 cm/sec - % stenosis 0-15% 4. External Carotid Artery: No significant focal plaque formation. Peak systolic velocity 56 cm/sec 5. ICA/CCA Ratio: 0.9 VERTEBRAL ARTERIES: 1. Right Vertebral Artery: The right vertebral artery flow direction is antegrade. 2. Left Vertebral Artery: The left vertebral artery flow direction is antegrade. OTHER FINDINGS: None. IMPRESSION: RIGHT: Duplex scan does not suggest hemodynamically significant stenosis of the right extracranial carotid arteries. LEFT: Duplex scan does not suggest hemodynamically significant stenosis of the left extracranial carotid arteries.
--- NOTE | 2018-09-28 14:15 | CP.PCM.PN ---
Subjective - Date & Time of Evaluation Date of Evaluation: 09/29/18 Time of Evaluation: 14:15 - Subjective Subjective: PATIENT Objective - Vital Signs/Intake and Output Vital Signs (last 24 hours): Temp Pulse Resp BP Pulse Ox 97.4 F L 80 20 105/63 96 09/28/18 08:27 09/28/18 08:27 09/28/18 08:27 09/28/18 08:27 09/28/18 08:27 - Medications Medications: Current Medications Acetaminophen/Butalbital/Caffeine (Fioricet) 1 tab PO Q6 PRN PRN Reason: Pain, moderate (4-7), Headache Last Admin: 09/28/18 04:06 Dose: 1 tab Enoxaparin Sodium (Lovenox) 40 mg SC DAILY [facility] Last Admin: 09/28/18 10:57 Dose: 40 mg Famotidine (Pepcid) 20 mg PO BID [facility] Last Admin: 09/28/18 10:57 Dose: 20 mg Levothyroxine Sodium (Synthroid) 125 mcg PO 0630 [facility] Last Admin: 09/28/18 05:34 Dose: 125 mcg Lidocaine (Lidoderm) 1 ea TD DAILY [facility] Last Admin: 09/28/18 10:57 Dose: 1 ea Loratadine (Claritin) 10 mg PO DAILY [facility] Last Admin: 09/28/18 10:57 Dose: 10 mg Multivitamins (Hexavitamin) 1 tab PO DAILY [facility] Last Admin: 09/28/18 10:57 Dose: 1 tab - Labs Labs: 09/28/18 07:50 09/28/18 07:50 Assessment and Plan - Assessment and Plan (Free Text) Assessment: FOLLOW UP WITH PMD IN HIS OFFICE -----CALL FOR APPOINTNEMT ADDRESS YOUR BP MEDS CONTINUATION WHEN FOLLOW UP WITH PMD CONTINUE HOME MEDICATION NEW PRESCRIPTION GIVEN CIPRO 500 MG PO BID FOR 7 DAYS THEN REPEAT URINE CULT PER DR ALYSHA GIMENEZ ONE TAB PO BID FOR 7 DAYS STOP TAKING BLOOD PRESSURE MEDICATION ACTIVITY TOLERATED CALL DR ENCARNACION OR GO TO THE EMERGENCY ROOM IF SYMPTOM RETURN OR WORSENING
--- NOTE | 2018-09-28 21:20 | CP.PCM.PN ---
Subjective - Date & Time of Evaluation Date of Evaluation: 09/28/18 Time of Evaluation: 07:20 - Subjective Subjective: dictated Objective - Vital Signs/Intake and Output Vital Signs (last 24 hours): Temp Pulse Resp BP Pulse Ox 98.2 F 95 H 20 116/73 97 09/28/18 15:00 09/28/18 15:00 09/28/18 15:00 09/28/18 15:00 09/28/18 15:00 Intake and Output: 09/28/18 09/29/18 18:59 06:59 Intake Total 800 Balance 800 - Medications Medications: Current Medications Acetaminophen/Butalbital/Caffeine (Fioricet) 1 tab PO Q6 PRN PRN Reason: Pain, moderate (4-7), Headache Last Admin: 09/28/18 16:12 Dose: 1 tab Enoxaparin Sodium (Lovenox) 40 mg SC DAILY [facility] Last Admin: 09/28/18 10:57 Dose: 40 mg Famotidine (Pepcid) 20 mg PO BID [facility] Last Admin: 09/28/18 18:02 Dose: Not Given Levothyroxine Sodium (Synthroid) 125 mcg PO 0630 [facility] Last Admin: 09/28/18 05:34 Dose: 125 mcg Lidocaine (Lidoderm) 1 ea TD DAILY [facility] Last Admin: 09/28/18 10:57 Dose: 1 ea Loratadine (Claritin) 10 mg PO DAILY [facility] Last Admin: 09/28/18 10:57 Dose: 10 mg Multivitamins (Hexavitamin) 1 tab PO DAILY [facility] Last Admin: 09/28/18 10:57 Dose: 1 tab - Labs Labs: 09/28/18 07:50 09/28/18 07:50
--- NOTE | 2018-09-28 22:59 | CARD ---
APPROVED REPORT Date of service: 09/27/2018 EXAM: Two-dimensional and M-mode echocardiogram with Doppler and color Doppler. Other Information Quality : GoodRhythm : INDICATION Syncope CAD RISK FACTORS Hypertension Hyperlipidemia 2D DIMENSIONS IVSd0.8 (0.7-1.1cm)LVDd4.1 (3.9-5.9cm) LVOT Diameter2.2 (1.8-2.4cm)PWd0.9 (0.7-1.1cm) LA [id number] (18-58mL)LVDs2.8 (2.5-4.0cm) FS (%) 33.0 %LVEF (%)62.0 (>50%) LVEF (Ford's)54.94 % M-Mode DIMENSIONS Left Atrium (MM)4.53 (2.5-4.0cm)IVSd0.76 (0.7-1.1cm) Aortic Root2.99 (2.2-3.7cm)LVDd5.21 (4.0-5.6cm) Aortic Cusp Exc.1.31 (1.5-2.0cm)PWd0.88 (0.7-1.1cm) FS (%) 32 %LVDs3.53 (2.0-3.8cm) LVEF (%)60 (>50%) Mitral Valve MV E Gwkmmzfm13.7cm/sMV A Jyhagfqr14.3cm/sE/A ratio0.6 TDI Lateral E' Peak V9.00cm/sMedial E' Peak V8.68cm/sE/Lateral E'6.3 E/Medial E'6.5 Tricuspid Valve TR Peak Vopyafci809mx/sTR Peak [id number] <Conclusion> Left ventricle: thickness: normal; size: normal; overall ejection fraction: 65%: diastolic filling pressures: normal Mitral valve: annulus: calcified: leaflets: mild calcific thickening: excursion: normal; no significant trans-mitral gradient: no significant incompetence: left atrium: normal Aortic valve: leaflets: calcific thickeningl: excursion: normal; 16 mmHg peak trans-aortic gradient: No significant incompetence: aortic root: normal Right sided Structures: Pulmonary valve: normal; no significant incompetence; Tricuspid valve: normal; no significant incompetence: Intra-cardiac hemodynamics: pulmonary systolic pressures: normal; central venous pressures: normal No pericardial effusion
--- NOTE | 2018-09-29 01:22 | PN ---
DATE: 09/28/2018 SUBJECTIVE: The patient is feeling better. She is afebrile. Decreased dizziness. She denies any nausea or vomiting. She states she does not have a place to stay. No fever. No chills. No cough. PHYSICAL EXAMINATION: VITAL SIGNS: Blood pressure 116/73, pulse 95, respiratory rate 20, temperature 98.2. LUNGS: Clear. CARDIOVASCULAR SYSTEM: S1 and S2, regular. ABDOMEN: Soft, nontender. Bowel sounds are positive. ASSESSMENT: 1. Dizziness, near syncope. 2. Osteoarthritis. PLAN: The patient is for discharge. We are waiting for a spot in a jail. Drake Gracia MD
[2018-09-29] MEDS: Apap-Butalbital-Caffeine 325-50-40mg Tab PO PRN ×2 (03:27→15:43)
[2018-09-29] MEDS: Levothyroxine 125 MCG TAB PO SCH (06:11)
[2018-09-29] MEDS: Multiple Vitamins Tab PO SCH (09:47)
[2018-09-29] MEDS: Enoxaparin 40 mg Syringe SC SCH (09:48)
[2018-09-29] MEDS: Lidocaine 5% Patch TD SCH (09:48)
[2018-09-29] MEDS: Meropenem 500 MG in Sodium Chloride 0.9% 100 ML IVPB SCH ×2 (12:00→19:00)
--- NOTE | 2018-09-29 22:28 | CP.PCM.PN ---
Subjective - Date & Time of Evaluation Date of Evaluation: 09/29/18 Time of Evaluation: 07:00 - Subjective Subjective: dictated Objective - Vital Signs/Intake and Output Vital Signs (last 24 hours): Temp Pulse Resp BP Pulse Ox 98.6 F 86 20 95/54 L 98 09/29/18 15:00 09/29/18 15:00 09/29/18 15:00 09/29/18 15:00 09/29/18 15:00 Intake and Output: 09/29/18 09/30/18 18:59 06:59 Intake Total 900 550 Balance 900 550 - Medications Medications: Current Medications Acetaminophen/Butalbital/Caffeine (Fioricet) 1 tab PO Q6 PRN PRN Reason: Pain, moderate (4-7), Headache Last Admin: 09/29/18 15:43 Dose: 1 tab Enoxaparin Sodium (Lovenox) 40 mg SC DAILY [facility] Last Admin: 09/29/18 09:48 Dose: 40 mg Famotidine (Pepcid) 20 mg PO BID [facility] Last Admin: 09/29/18 19:00 Dose: 20 mg Meropenem 500 mg/ Sodium (Chloride) 100 mls @ 100 mls/hr IVPB Q8H [facility]; Protocol Last Admin: 09/29/18 19:00 Dose: 100 mls/hr Levothyroxine Sodium (Synthroid) 125 mcg PO 0630 [facility] Last Admin: 09/29/18 06:11 Dose: 125 mcg Lidocaine (Lidoderm) 1 ea TD DAILY [facility] Last Admin: 09/29/18 09:48 Dose: 1 ea Loratadine (Claritin) 10 mg PO DAILY [facility] Last Admin: 09/29/18 09:47 Dose: 10 mg Multivitamins (Hexavitamin) 1 tab PO DAILY [facility] Last Admin: 09/29/18 09:47 Dose: 1 tab - Labs Labs: 09/28/18 07:50 09/28/18 07:50
[2018-09-30] MEDS: Meropenem 500 MG in Sodium Chloride 0.9% 100 ML IVPB SCH ×2 (03:17→19:31)
[2018-09-30] MEDS: Apap-Butalbital-Caffeine 325-50-40mg Tab PO PRN ×2 (03:17→12:19)
[2018-09-30] MEDS: Levothyroxine 125 MCG TAB PO SCH (05:50)
--- NOTE | 2018-09-30 07:34 | CARD ---
APPROVED REPORT Date of service: 09/25/2018 EKG Measurement Heart [id number] <Conclusion> Sinus rhythm with occasional premature ventricular complexes Nonspecific T wave abnormality Abnormal ECG
--- NOTE | 2018-09-30 09:43 | PN ---
DATE: 09/29/2018 SUBJECTIVE: The patient is feeling better. She had multidrug resistant urinary tract infection, has Klebsiella pneumoniae and is here for subacute rehab. No fever. No chills. No nausea or vomiting. She needs 1 week of antibiotic and subacute rehab. PHYSICAL EXAMINATION: VITAL SIGNS: Blood pressure 99/64, pulse 80, respiratory rate 18, temperature 97.6. LUNGS: Clear. No rales, no rhonchi. CARDIOVASCULAR SYSTEM: S1 and S2, regular. ABDOMEN: Soft, nontender. Bowel sounds are positive. ASSESSMENT: 1. Multi-drug legislative assistant urinary tract infection due to extended-spectrum beta-lactamases positive germs. 2. Chronic dizziness. 3. Osteoarthritis. PLAN: The patient is for subacute rehab. Drake Gracia MD
[2018-09-30] MEDS: Enoxaparin 40 mg Syringe SC SCH (10:03)
[2018-09-30] MEDS: Lidocaine 5% Patch TD SCH (10:03)
[2018-09-30] MEDS: Multiple Vitamins Tab PO SCH (10:03)
[2018-09-30 16:20] VITALS: RESP 20
--- NOTE | 2018-09-30 21:39 | CP.PCM.PN ---
Subjective - Date & Time of Evaluation Date of Evaluation: 09/30/18 Time of Evaluation: 19:20 - Subjective Subjective: dictated Objective - Vital Signs/Intake and Output Vital Signs (last 24 hours): Temp Pulse Resp BP Pulse Ox 97.8 F 107 H 20 113/54 L 96 09/30/18 15:00 09/30/18 15:00 09/30/18 15:00 09/30/18 15:00 09/30/18 15:00 - Medications Medications: Current Medications Acetaminophen/Butalbital/Caffeine (Fioricet) 1 tab PO Q6 PRN PRN Reason: Pain, moderate (4-7), Headache Last Admin: 09/30/18 12:19 Dose: 1 tab Enoxaparin Sodium (Lovenox) 40 mg SC DAILY [facility] Last Admin: 09/30/18 10:03 Dose: 40 mg Famotidine (Pepcid) 20 mg PO BID [facility] Last Admin: 09/30/18 18:06 Dose: 20 mg Meropenem 500 mg/ Sodium (Chloride) 100 mls @ 100 mls/hr IVPB Q8H [facility]; Protocol Last Admin: 09/30/18 19:31 Dose: 100 mls/hr Levothyroxine Sodium (Synthroid) 125 mcg PO 0630 [facility] Last Admin: 09/30/18 05:50 Dose: 125 mcg Lidocaine (Lidoderm) 1 ea TD DAILY [facility] Last Admin: 09/30/18 10:03 Dose: 1 ea Loratadine (Claritin) 10 mg PO DAILY [facility] Last Admin: 09/30/18 10:03 Dose: 10 mg Multivitamins (Hexavitamin) 1 tab PO DAILY [facility] Last Admin: 09/30/18 10:03 Dose: 1 tab - Labs Labs: 09/28/18 07:50 09/28/18 07:50
--- NOTE | 2018-09-30 23:45 | PN ---
DATE: 09/30/2018 SUBJECTIVE: Maria Elena Singh is refusing to go to subacute rehab. She is anxious. She is agitated. She is restless. No nausea, vomiting. She claims she is dizzy, but she is not in distress. No fever. No chills. PHYSICAL EXAMINATION: VITAL SIGNS: Blood pressure 113/54, pulse , respiratory rate 20, temperature 97.8. LUNGS: Clear. No rales. No rhonchi. CARDIOVASCULAR SYSTEM: S1 and S2, regular. ABDOMEN: Soft, nontender. Bowel sounds are positive. ASSESSMENT: 1. 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 Continue intravenous Merrem. 2. Dizziness. 3. Osteoarthritis. PLAN: Due to the patient's bizarre behavior, we will get Psych consult. Monitor the patient and we will . Drake Gracia MD
[2018-10-01] MEDS: Apap-Butalbital-Caffeine 325-50-40mg Tab PO PRN (01:35)
[2018-10-01] MEDS: Meropenem 500 MG in Sodium Chloride 0.9% 100 ML IVPB SCH (02:53)
[2018-10-01] MEDS: Levothyroxine 125 MCG TAB PO SCH ×2 (05:09→05:51)
[2018-10-01 07:53] VITALS: BP 116/75; PULSE 87; TEMP 97.4; O2SAT 94
[2018-10-01] MEDS: Lidocaine 5% Patch TD SCH (09:41)
[2018-10-01] MEDS: Enoxaparin 40 mg Syringe SC SCH (09:41)
[2018-10-01] MEDS: Multiple Vitamins Tab PO SCH (09:41)
--- NOTE | 2018-10-01 09:44 | PCM.PSYCH ---
Initial Psychiatric Evaluation - Initial Psychiatric Evaluation Type of Admission: Voluntary Legal Status: Capacity History of Present Illness and Precipitating Events: 8 y/o female pt with hx of arthritis, HTN, HLD, migraines, pneumonia and CAD presents to the ER c/o syncopal episode today. Current Medications: Active Medications Generic Name Dose Route Start Last Admin Trade Name Freq PRN Reason Stop Dose Admin Acetaminophen/Butalbital/Caffeine 1 tab 09/25/18 04:59 10/01/18 01:35 Fioricet PO 1 tab Q6 PRN Administration Pain, moderate (4-7), Headache Enoxaparin Sodium 40 mg 09/25/18 10:15 10/01/18 09:41 Lovenox SC 40 mg DAILY [facility] Administration Famotidine 20 mg 09/25/18 10:15 10/01/18 09:42 Pepcid PO 20 mg BID [facility] Administration Meropenem 500 mg/ Sodium 100 mls @ 100 mls/hr 09/29/18 11:30 10/01/18 02:53 Chloride IVPB 100 mls/hr Q8H [facility] Administration Protocol Levothyroxine Sodium 125 mcg 09/27/18 06:30 10/01/18 05:51 Synthroid PO Not Given 0630 [facility] Lidocaine 1 ea 09/27/18 10:00 10/01/18 09:41 Lidoderm TD 1 ea DAILY [facility] Administration Loratadine 10 mg 09/25/18 10:00 10/01/18 09:41 Claritin PO 10 mg DAILY [facility] Administration Multivitamins 1 tab 09/25/18 10:00 10/01/18 09:41 Hexavitamin PO 1 tab DAILY [facility] Administration Past Psychiatric History - Past Psychiatric History Pertinent Medical Hx (Current Medical&Sleep Prob, Allergies): Allergies Allergy/AdvReac Type Severity Reaction Status Date / Time oxycodone HCl [From Percocet] Allergy urticaria Verified 04/20/18 03:05 to "IV percocet" Sulfa (Sulfonamide Allergy SHORTNESS Verified 04/20/18 03:05 Antibiotics) OF BREATH aspirin AdvReac pt has Verified 04/20/18 03:05 ulcer ciprofloxacin AdvReac DIZZINESS Verified 04/24/18 12:33 doxycycline AdvReac DIZZINESS Verified 04/24/18 12:33 ibuprofen [From Motrin IB] AdvReac VOMITING Verified 04/23/18 20:04 naproxen AdvReac pt has Verified 04/20/18 03:05 ulcer Acetaminophen/Butalbital/Caf [Fioricet] 1 tab PO Q6 PRN #30 tab 01/23/18 Synthroid 125 mcg PO DAILY 04/20/18 Ranitidine HCl [Zantac 75] 300 mg PO DAILY 04/23/18 Multivitamin [Daily Ole] 1 tab PO DAILY 04/24/18 Naloxegol Oxalate [Movantik] 25 mg PO DAILY 04/24/18 Omeprazole 40 mg PO DAILY 04/24/18 Acetaminophen/Butalbital/Caf [Fioricet] 1 tab PO Q6 PRN tab 04/28/18 Loratadine [Claritin] 10 mg PO DAILY #30 tab 04/28/18 Meropenem [Merrem IV] 500 mg IVPB Q8H 7 Days vial 09/29/18
--- NOTE | 2018-10-01 22:19 | CP.PCM.DIS ---
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[employer] Referral Routine Comment: Physician Instructions: Reason For Exam: hx: pneumonia 09/30/18 15:47 Psychiatry Consult Routine Comment: Consulting Provider: Abby Juárez Consulting Physician: Abby Juárez Reason for Consult: may need involuntary admission/multiple psy issues Time Spent in preparation of Discharge (in minutes): 30 Hospital Course - Lab Results Lab Results: Micro Results 09/27/18 16:47 Urine Random Urine Culture - Final Klebsiella Pneumoniae Ssp Pneu Most Recent Lab Values WBC 8.5 K/uL (4.8-10.8) 09/28/18 07:50 RBC 4.11 Mil/uL (3.80-5.20) 09/28/18 07:50 Hgb 12.0 g/dL (11.0-16.0) 09/28/18 07:50 Hct 36.3 % (34.0-47.0) 09/28/18 07:50 MCV 88.4 fL (81.0-99.0) 09/28/18 07:50 MCH 29.3 pg (27.0-31.0) 09/28/18 07:50 MCHC 33.2 g/dL (33.0-37.0) 09/28/18 07:50 RDW 14.4 % (11.5-14.5) 09/28/18 07:50 Plt Count 308 K/uL (130-400) 09/28/18 07:50 MPV 8.8 fL (7.2-11.7) 09/28/18 07:50 Neut % (Auto) 70.7 % (50.0-75.0) 09/28/18 07:50 Lymph % (Auto) 12.2 % (20.0-40.0) L 09/28/18 07:50 [place] % (Auto) 10.9 % (0.0-10.0) H 09/28/18 07:50 Eos % (Auto) 5.2 % (0.0-4.0) H 09/28/18 07:50 Baso % (Auto) 1.0 % (0.0-2.0) 09/28/18 07:50 Neut # (Auto) 6.0 K/uL (1.8-7.0) 09/28/18 07:50 Lymph # (Auto) 1.0 K/uL (1.0-4.3) 09/28/18 07:50 [place] # (Auto) 0.9 K/uL (0.0-0.8) H 09/28/18 07:50 Eos # (Auto) 0.4 K/uL (0.0-0.7) 09/28/18 07:50 Baso # (Auto) 0.1 K/uL (0.0-0.2) 09/28/18 07:50 Sodium 135 mmol/L (132-148) 09/28/18 07:50 Potassium 4.3 mmol/L (3.6-5.2) 09/28/18 07:50 Chloride 98 mmol/L (98-107) 09/28/18 07:50 Carbon Dioxide 33 mmol/L (22-30) H 09/28/18 07:50 Anion Gap 8 (10-20) L 09/28/18 07:50 BUN 18 mg/dL (7-17) H 09/28/18 07:50 Creatinine 0.7 mg/dL (0.7-1.2) 09/28/18 07:50 Est GFR ( Amer) > 60 09/28/18 07:50 Est GFR (Non-Af Amer) > 60 09/28/18 07:50 POC Glucose (mg/dL) 94 mg/dL (65-110) 09/30/18 11:07 Random Glucose 96 mg/dL (65-105) 09/28/18 07:50 Calcium 9.3 mg/dl (8.6-10.4) 09/28/18 07:50 Phosphorus 3.5 mg/dL (2.5-4.5) 09/27/18 07:40 Magnesium 1.8 mg/dL (1.6-2.3) 09/27/18 07:40 Total Bilirubin 0.3 mg/dL (0.2-1.3) 09/28/18 07:50 AST 30 U/L (14-36) 09/28/18 07:50 ALT 25 U/L (9-52) 09/28/18 07:50 Alkaline Phosphatase 136 U/L (38-126) H D 09/28/18 07:50 Total Creatine Kinase < 20 U/L (30-135) L 09/25/18 05:51 CK-MB (Mass) 1.18 ng/mL (0.0-3.38) 09/25/18 05:51 Troponin I 0.0120 ng/mL (0.00-0.120) 09/25/18 05:51 Total Protein 6.2 g/dL (6.3-8.3) L 09/28/18 07:50 Albumin 3.9 g/dL (3.5-5.0) 09/28/18 07:50 Globulin 2.3 gm/dL (2.2-3.9) 09/28/18 07:50 Albumin/Globulin Ratio 1.7 (1.0-2.1) 09/28/18 07:50 Triglycerides 185 mg/dL (0-149) H 09/25/18 05:51 Cholesterol 213 mg/dL (0-199) H 09/25/18 05:51 LDL Cholesterol Direct 97 mg/dL (0-129) 09/25/18 05:51 HDL Cholesterol 70 mg/dL (30-70) 09/25/18 05:51 Lipase 48 U/L (23-300) 09/27/18 07:40 TSH 3rd Generation 0.25 mIU/L (0.46-4.68) L 09/25/18 05:51 Discharge Exam - Head Exam Head Exam: ATRAUMATIC Discharge Plan - Discharge Medications Prescriptions: Lactobacillus Acidophilus [Bacid Acidophilus] 1 cap PO BID 7 Days cap Ciprofloxacin [Cipro] 500 mg PO BID 7 Days tab - Follow Up Plan Condition: STABLE Disposition: HOME/ ROUTINE Instructions: Syncope (DC) Additional Instructions: FOLLOW UP WITH PMD IN HIS OFFICE -----CALL FOR APPOINTNEMT ADDRESS YOUR BP MEDS CONTINUATION WHEN FOLLOW UP WITH PMD CONTINUE HOME MEDICATION NEW PRESCRIPTION GIVEN CIPRO 500 MG PO BID FOR 7 DAYS THEN REPEAT URINE CULT PER DR ALYSHA BACID ONE TAB PO BID FOR 7 DAYS STOP TAKING BLOOD PRESSURE MEDICATION ACTIVITY TOLERATED CALL DR GRACIA OR GO TO THE EMERGENCY ROOM IF SYMPTOM RETURN OR WORSENING Referrals: Feliz Stoll MD [Staff Provider] - Drake Gracia MD [Staff Provider] - Gissel Valladares MD [Staff Provider] -
--- NOTE | 2018-10-02 08:33 | DS ---
DISCHARGE DIAGNOSES: 1. Dizziness, near syncope. 2. Osteoarthritis of the ankle. 3. Fall. 4. Hypertension. 5. Urinary tract infection. HISTORY: This is a 78-year-old elderly white female with history of hypertension and hyperlipidemia. She is a smoker. She is noncompliant with diet, medication, and followup. She came in because of dizziness, near syncope, found to have low blood pressure. Her blood pressure medications were adjusted. Subsequently, she developed dysuria, and urine culture grew multidrug-resistant E. coli. She was started on Merrem, activity, and she is for discharge. Condition upon discharge is stable. She will be followed up closely. Drake Gracia MD
== END 2018-10-01 11:15 | DRG 690 ==
LOC: C.ER 23:29 → C.9E 09-25 04:49 → C.5S 09-25 07:18 → OBSVTOIN 09-27 15:48
PROVIDERS: ADMIT Internal Medicine; ATTEND Internal Medicine
PROC: 02HV33Z Insertion of Infusion Device into Superior Vena Cava, Percutaneous Approach (ICD-10-PCS; principal; 2018-10-01)
PROC: B548ZZA Ultrasonography of Superior Vena Cava, Guidance (ICD-10-PCS; 2018-10-01)
DX: N39.0 Urinary tract infection, site not specified (principal); I10 Essential (primary) hypertension; B96.20 Unspecified Escherichia coli [E. coli] as the cause of diseases classified elsewhere; E03.9 Hypothyroidism, unspecified; E78.00 Pure hypercholesterolemia, unspecified; E78.5 Hyperlipidemia, unspecified; F17.200 Nicotine dependence, unspecified, uncomplicated; I12.9 Hypertensive chronic kidney disease with stage 1 through stage 4 chronic kidney disease, or unspecified chronic kidney disease; M19.071 Primary osteoarthritis, right ankle and foot; I25.10 Atherosclerotic heart disease of native coronary artery without angina pectoris; N18.9 Chronic kidney disease, unspecified; Z16.24 Resistance to multiple antibiotics; Z86.73 Personal history of transient ischemic attack (TIA), and cerebral infarction without residual deficits; Z87.11 Personal history of peptic ulcer disease; Z87.01 Personal history of pneumonia (recurrent); Z91.11 Patient's noncompliance with dietary regimen

== ENCOUNTER 2018-11-18 17:15 | Emergency (ER) | payer MEDICARE, MEDICAID ==
[2018-11-18 17:16] VITALS: BMI 16.2
[2018-11-18 17:33] VITALS: BP 121/73; PULSE 100; RESP 18; TEMP 97.8; O2SAT 100
--- NOTE | 2018-11-18 17:33 | C.PDOC ---
History Of Present Illness 78 year old female seferino, with a PMHx of sinusitis in July, who presents for ED for evaluation after calling EMS for unknown reason as she changes her reasoning over and over. Patient is homesless and has been inpatient in every local hospital since July 2018, most recently with Dr. Kang at [facility] until a few days ago. Patient has stayed in a [facility] one night only in all this time. She reports she was angry at Dr. Kang, so she called EMS. She also states she has occasional clear nasal discharge and a mild sore throat. No fevers. Time Seen by Provider: 11/18/18 17:27 Chief Complaint (Nursing): Medical Clearance History Per: Patient History/Exam Limitations: no limitations Recent travel outside of the [place]: No Additional History Per: Patient Past Medical History Reviewed: Historical Data, Nursing Documentation, Vital Signs Vital Signs: Last Vital Signs Temp 97.8 F 11/18/18 17:25 Pulse 100 H 11/18/18 17:25 Resp 18 11/18/18 17:25 BP 121/73 11/18/18 17:25 Pulse Ox 100 11/18/18 17:25 Primary Care Provider: Callum Kang - Medical History PMH: Arthritis, Back Problems, Fractures (L leg L ankle, L foot), Gastritis, Gastrointestinal Ulcer, HTN, Hypercholesterolemia, Hypothyroidism, Migraine, Peripheral Edema, Pneumonia, Pneumothorax, Chronic Kidney Disease Denies: Anxiety (denied), Bipolar Disorder (denied), Diabetes, Deep Vein Thrombosis, Hepatitis, HIV, Seizures, Sexually Transmitted Disease Surgical History: Appendectomy, Cholecystectomy, Tonsillectomy Denies: Pacemaker - [facility] Procedures DEBRIDEMENT OF NAIL, NAIL BED OR NAIL FOLD (06/03/13) EXCISION OF TOE NAIL, EXTERNAL APPROACH (01/17/18) HOME MANAGEMENT TREATMENT (01/17/18) INDIVID PSYCHOTHERAP NEC (06/03/13) INJECT/INFUSE NEC (12/06/14) INSERTION OF INFUSION DEV INTO SUP VENA CAVA, PERC APPROACH (09/27/18) OTHER GROUP THERAPY (06/03/13) ULTRASONOGRAPHY OF SUPERIOR VENA CAVA, GUIDANCE (09/27/18) Family History: States: Unknown Family Hx - Social History Hx Tobacco Use: No Hx Alcohol Use: No Hx Substance Use: No - Immunization History Hx Tetanus Toxoid Vaccination: Yes Hx Influenza Vaccination: Yes Hx Pneumococcal Vaccination: Yes Review Of Systems Constitutional: Negative for: Fever, Chills ENT: Positive for: Nose Discharge (clear) Cardiovascular: Negative for: Chest Pain Respiratory: Negative for: Shortness of Breath Gastrointestinal: Negative for: Nausea, Vomiting, Diarrhea Physical Exam - Physical Exam Appears: Non-toxic, No Acute Distress, Other (elderly female, bizzare, circumlocutious) Skin: Warm, Dry Head: Atraumatic, Normacephalic Eye(s): bilateral: Normal Inspection Nose: No Discharge, Other (erythematous nasal passages ) Throat: Other (post nasal drip) Neck: Normal ROM, Supple Chest: Symmetrical, No Deformity Cardiovascular: Rhythm Regular, No Murmur Respiratory: Normal Breath Sounds, No Rales, No Rhonchi, No Wheezing Gastrointestinal/Abdominal: Soft, No Tenderness Neurological/Psych: Oriented x3 ED Course And Treatment O2 Sat by Pulse Oximetry: 100 (on RA) Pulse Ox Interpretation: Normal Medical Decision Making Medical Decision Making: Plan: Benadryl 25mg PO nasal congestion seasonal allergies no [place] no nasal d/c homeless benadryl/Claritin opt f/u with Dr. Irvin @ [facility] Disposition Doctor Will See Patient In The: Office Counseled Patient/Family Regarding: Studies Performed, Diagnosis - Disposition Referrals: [facility] [Outside] [facility] [Outside] [facility] [Outside] [facility] [Outside] Callum Kang [Medical Doctor] - Disposition: HOME/ ROUTINE Disposition Time: 17:33 Condition: GOOD Additional Instructions: Continue Benadryl 25-50 mg every 6 hours as needed Claritin 10 mg in AM Flonase spray 1 spray to each nostril every 12 hours f/u with Dr. Irvin Instructions: Allergic Rhinitis (ED) Forms: [facility] (Chinese) - Clinical Impression Clinical Impression: Homelessness, Nasal congestion with rhinorrhea - Scribe Statement The provider has reviewed the documentation as recorded by the Yeimy Santacruz All medical record entries made by the Scribe were at my direction and personally dictated by me. I have reviewed the chart and agree that the record accurately reflects my personal performance of the history, physical exam, medical decision making, and the department course for this patient. I have also personally directed, reviewed, and agree with the discharge instructions and disposition.
== END 2018-11-18 17:50 | disposition home or self-care (01) ==
LOC: C.ER 17:15
DX: R09.81 Nasal congestion (principal); Z59.0 Homelessness

== ENCOUNTER 2018-11-19 05:02 | Emergency (ER) | payer MEDICARE, MEDICAID | END 2018-11-19 17:21 | disposition home or self-care (01) | LOC: C.ER 05:02 ==